=== PATIENT | male | born 1995 | race Caucasian/White ===

== ENCOUNTER 2017-05-03 14:30 | Emergency (ER) | payer OTHER ==
[2017-05-03] MEDS ORDERED: ceFAZolin 1 GM in Premix Bag 1 BAG IV ONE (15:06)
[2017-05-03] MEDS ORDERED: Morphine 4 MG/ML Syringe IVPUSH ONE (15:06)
[2017-05-03] MEDS ORDERED: Ondansetron 4 MG/2 ML SDV IVPUSH ONE (15:07)
--- NOTE | 2017-05-03 15:38 | CR ---
EXAMINATION: Left hand, fifth digit HISTORY: Trauma COMPARISON: None TECHNIQUE: 2 views FINDINGS/IMPRESSION: There is no acute osseous abnormality, dislocation, or fracture. Bone mineraliza tion and joint spaces appear normal. The adjacent soft tissues are not well evaluated due to overlyin g gauze.
[2017-05-03] MEDS ORDERED: Bupivacaine 0.25% 10 ML SDV INJECT ONE (16:19)
[2017-05-03] MEDS ORDERED: Bupivacaine 0.25% 10 ML SDV ONE (16:21)
--- NOTE | 2017-05-04 10:02 | EDM.PDOC ---
ED HPI GENERAL MEDICAL PROBLEM - General Chief Complaint: Upper Extremity Injury/Pain Stated Complaint: FINGER ON LT HAND INJURY Time Seen by Provider: 05/03/17 16:02 Source of Information: Reports: Patient, Provider, Other (health and safety advisor) History Limitations: Reports: No Limitations - History of Present Illness INITIAL COMMENTS - FREE TEXT/NARRATIVE: amputation of the right small finger earlier today while at work. Seen at Windy's office and sent to us for evaluation and revision amputation. xryas show minor disruption of the tuft and lack of soft tissue from mid distal phalanx down. Tendons intact on physical exam and we will leave these in place for optimal function. All questions answered. The bone extends out past the amputated soft tissue. Tip is brought with but not salvageable. Could act as a biologic dressing but would likely take longer than revision amputation to heal. My recommendation for this type of injury without sufficient soft tissue and nail bed disruption is revision amputation. 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 He will have faster return to activity and less pain with revision. He understands and would like to proceed with revision amputation. Onset: Today, Sudden Onset Date: 05/03/17 Duration: Hour(s): Location: Reports: Upper Extremity, Left Quality: Reports: Pressure, Throbbing Improves with: Reports: Immobilization Worsens with: Reports: Movement Context: Reports: Trauma left little index Pain Score (Numeric/FACES): 4 - Related Data Allergies Allergy/AdvReac Type Severity Reaction Status Date / Time No Known Allergies Allergy Verified 05/03/17 14:44 Home Meds: Home Meds . [No Known Home Meds] 05/03/17 [History] Past Medical History - Past Health History Medical/Surgical History: Denies Medical/Surgical History Social & Family History - Family History Family Medical History: Noncontributory - Tobacco Use Smoking Status *Q: Current Every Day Smoker Years of Tobacco use: 4 Packs/Tins Daily: 1 - Recreational Drug Use Recreational Drug Use: No Review of Systems - Review of Systems Review Of Systems: See Below Constitutional: Reports: No Symptoms Eyes: Reports: No Symptoms Mouth/Throat: Reports: No Symptoms Respiratory: Reports: No Symptoms Skin: Reports: Wound Neurological: Reports: No Symptoms ED EXAM, GENERAL - Physical Exam Exam: See Below Exam Limited By: No Limitations General Appearance: Alert, No Apparent Distress Nose: Normal Inspection Head: Atraumatic, Normocephalic Extremities: Other (left small finger tip amputation with skin and soft tissue avulse.d. Bone extending past the soft tissue about 1.5cm. Nail missing to fold. Exposed bone without adeqiuate soft tissue for reapproximation. ) Neurological: Alert, Oriented Psychiatric: Normal Affect, Normal Mood Skin Exam: Wound/Incision (as above. ) ED TRAUMA EXTREMITY PROCEDURES - Additional/Other Procedure(s) Other (Free Text) Procedure(s): revision amputation with direct closure left small finger. Course - Vital Signs Last Recorded V/S: Last Vital Signs Temp 97.9 F 05/03/17 17:55 Pulse 52 L 05/03/17 17:55 Resp 17 05/03/17 17:55 BP 117/74 05/03/17 17:55 Pulse Ox 95 05/03/17 17:55 - Orders/Labs/Meds Meds: Medications Discontinued Medications Generic Name Dose Route Start Last Admin Trade Name Freq PRN Reason Stop Dose Admin Bupivacaine HCl 10 ml 05/03/17 16:19 05/03/17 18:03 Sensorcaine-Mpf 0.25% INJECT 05/03/17 16:20 10 ml ONETIME ONE Administration Bupivacaine HCl Confirm 05/03/17 16:21 05/03/17 18:04 Sensorcaine-Mpf 0.25% Administered 05/03/17 16:22 Not Given Dose 10 ml .ROUTE .STK-MED ONE Cefazolin Sodium/Dextrose 1 gm 50 mls @ 100 mls/hr 05/03/17 15:06 05/03/17 15 :27 / Premix IV 05/03/17 15:35 100 mls/hr ONETIME ONE Administration Morphine Sulfate 4 mg 05/03/17 15:06 05/03/17 15:24 Morphine IVPUSH 05/03/17 15:07 4 mg ONETIME ONE Administration Ondansetron HCl 4 mg 05/03/17 15:07 05/03/17 15:23 Zofran IVPUSH 05/03/17 15:08 4 mg ONETIME ONE Administration Departure - Departure Time of Disposition: 17:25 Disposition: Home, Self-Care 01 Condition: Good Clinical Impression: Partial traumatic transphalangeal amputation of left little finger, initial encounter - Discharge Information Instructions: [facility], Adult, [id number] Referrals: Erna Guerrero MD [Emergency Provider] - Forms: ED Department Discharge Additional Instructions: Per discussion with Dr. Guerrero Dressings on 24-48 hours then shower per usual. Bandaid after if needed. Keep elevated and norco for pain if needed. Take all antibiotics given by Dr Temple. 10lb weight limit x 2 weeks. Follow up then for likely full release. - Problem List & Annotations (1) Partial traumatic transphalangeal amputation of left little finger, initial encounter SNOMED Code(s): 00462436 Code(s): S68.627A - PARTIAL TRAUMATIC TRNSPHAL AMP OF L LITTLE FINGER, INIT Status: Acute Priority: High Onset Date: 05/03/17 - Problem List Review Problem List Initiated/Reviewed/Updated: Yes - Assessment/Plan Assessment:: partial amputation of the left small finger distally. Plan: revision amputation in the er and discharge with antibiotics, pain meds and follow up in 2 weeks. 10lb weight limit until then.
== END 2017-05-03 17:57 | disposition home or self-care (01) ==
LOC: MW.ED 14:30
DX: S68.627A Partial traumatic transphalangeal amputation of left little finger, initial encounter (principal); F17.210 Nicotine dependence, cigarettes, uncomplicated; X58.XXXA Exposure to other specified factors, initial encounter; Y99.0 Civilian activity done for income or pay
CPT/HCPCS: 26951; 73140; 96374; 96375; 99284; J0690; J2270; J2405